=== PATIENT | male | born 1990 | race Caucasian/White ===

== ENCOUNTER 2024-05-19 12:56 | Emergency (ER) | payer BC, OTHER ==
[~2024-05-19] VITALS: Ht 190.5 cm; Wt 122.5 kg
--- NOTE | 2024-05-19 13:05 | ERN ---
ED Note History of Present Illness Stated Complaint: LACERATION ABOVE RIGHT EAR Time Seen by MD: 13:00 Dictation: PATIENT IS A 33-YEAR-OLD MALE HERE STATES HE IS HERE WITH COMPLAINTS OF ERYTHEMA PAIN TO THE RIGHT ANTERIOR EAR ONSET 3-4 DAYS AGO. HE STATES HIS SAW HIS PRIMARY CARE DOCTOR YESTERDAY WHO PERFORMED AN I&D ON A FACIAL ABSCESS AND MARKED THE ERYTHEMA TO HIS FACE. WHEN HE REVIEWED HIM TODAY, HE TOLD HIM HE THO UGHT IT WAS WORSE DESPITE HIS I AND D IN THE CLINDAMYCIN AND TOLD HIM TO COME TO THE EMERGENCY ROOM. PATIENT STATES HE HAS HAD NO FEVER NO CHILLS NO EAR PAIN NO MASTOID TENDERNESS. Allergies: Coded Allergies: No Known Allergies (Unverified Allergy, Unknown, 05/19/24) Past Medical History RN Note Reviewed/Agreed w/PFSH: Yes Review of System Dictation CONSTITUTIONAL: NEGATIVE EXCEPT FOR HPI HEAD/FACE: NEGATIVE EXCEPT FOR HPI TENDERNESS TO RIGHT ANTERIOR EAR, FORMER I AND D SITE NOTED EENT: NEGATIVE EXCEPT FOR HPI RESPIRATORY: NEGATIVE EXCEPT FOR HPI GASTROINTESTINAL/ABDOMINAL: NEGATIVE EXCEPT FOR HPI GENITOURINARY: NEGATIVE EXCEPT FOR HPI MUSCULOSKELETAL: NEGATIVE EXCEPT FOR HPI INTEGUMENTARY: NEGATIVE EXCEPT FOR HPI NEUROLOGICAL/PSYCH: NEGATIVE EXCEPT FOR HPI HEMATOLOGIC/LYMPHATIC: NEGATIVE EXCEPT FOR HPI ALL SYSTEMS NEGATIVE, EXCEPT NOTED ABOVE. 13 POINT REVIEW OF SYSTEMS ASSESSED AND ALL NEGATIVE EXCEPT FOR ABOVE. Initial Vital Sign VS Vital Signs Date Time Temp Pulse Resp B/P (MAP) Pulse Ox O2 Delivery O2 Flow Rate FiO2 05/19/24 13:13 97.5 78 16 146/89 96 Room Air 0 05/19/24 13:53 21 Physical Exam Dictation VITAL SIGNS REVIEWED GENERAL APPEARANCE: ALERT, ORIENTED X 3, MILD ACUTE DISTRESS, WELL DEVELOPED, NOURISHED. HEAD AND FACE: GRANULATING I AND D SITE TO RIGHT ANTERIOR EAR SUPERIORLY. MILD ERYTHEMA NOTED NO MASTOID TENDERNESS EYES: PERRL, PINK CONJUNCTIVAS, EYELID NO TRAUMA, ANTERIOR CHAMBER WITH ARCUS SENILIS. EARS: PINNAS INTACT AND NO SIGNS OF TRAUMA OR ERYTHEMA EAR CANALS CLEAR AND NO DISCHARGE TM NO ERYTHEMA NOSE: NO DISCHARGE, NO BLEEDING. OROPHARYNX: MOUTH NORMAL, TONGUE PINK, PHARYNX CLEAR,NO ERYTHEMA, TONSILS NO EXUDATES, NO ABSCESSES NOTED, MUCOUS MEMBRANE MOIST NECK: SUPPLE, NON-TENDER, NO THYROMEGALY, NO MASSES, NO JVD, NO BRUITS BREAST:DEFERRED CHEST:NO TENDERNESS, NO CREPITUS, NO PARADOXICAL MOVEMENT, NO RETRACTIONS LUNGS:CLEAR, WELL-VENTILATED, SYMMETRIC, NO RALES, NO WHEEZING, NO RHONCHI, NO STRIDOR, GOOD BREATH SOUNDS BILATERALLY HEART: REGULAR RATE, REGULAR RHYTHM, NO MURMUR, NO GALLOPS VASCULAR: NO PERIPHERAL EDEMA, ABDOMEN: SOFT, POSITIVE BOWEL SOUNDS, NONDISTENDED, NO GUARDING, NONTENDER, NO REBOUND, NO MASSES NO HEPATOMEGALY, NO SPLENOMEGALY, NO JONES'S SIGN, NO HERNIAS. RECTAL: DEFERRED GENITAL: DEFERRED NEUROLOGICAL: NORMAL SPEECH, MOTOR FUNCTION INTACT, SENSORY FUNCTION INTACT MUSCULOSKELETAL: NECK NONTENDER, FULL RANGE OF MOTION, BACK NONTENDER, FULL RANGE OF MOTION, EXTREMITIES: NONTENDER, FULL RANGE OF MOTION SKIN: COLOR PINK, DRY, NO TURGOR, NO RASH, NO LACERATIONS, NO ABRASIONS, NO CONTUSIONS. LYMPHATIC: DEFERRED Results (Laboratory/Radiology) Laboratory/Radiology Laboratory Tests Test 05/19/24 13:47 White Blood Count 8.7 K/uL (4.8-10.8) Red Blood Count 4.37 MIL/uL (4.50-6.20) L Hemoglobin 13.3 g/dL (14.0-18.0) L Hematocrit 38.0 % (42-54) L Mean Corpuscular Volume 87.0 fL (79-99) Mean Corpuscular Hemoglobin 30.4 pg (27.0-33.0) Mean Corpuscular Hemoglobin Concent 35.0 g/dL (32.0-36.0) Red Cell Distribution Width 12.8 % (11.0-15.5) Platelet Count 213 K/uL (130-400) Mean Platelet Volume 11.2 fL (7.5-10.5) H Immature Granulocyte % (Auto) 0.5 % (0-1) Neutrophils (%) (Auto) 67.0 % (40.0-77.0) Lymphocytes (%) (Auto) 21.5 % (21.0-51.0) Monocytes (%) (Auto) 7.7 % (3.0-13.0) Eosinophils (%) (Auto) 2.7 % (0.0-8.0) Basophils (%) (Auto) 0.6 % (0.0-5.0) Neutrophils # (Auto) 5.9 K/uL (1.8-7.7) Lymphocytes # (Auto) 1.9 K/uL (1.0-4.8) Monocytes # (Auto) 0.7 K/uL (0.1-1.0) Eosinophils # (Auto) 0.24 K/uL (0.00-0.70) Basophils # (Auto) 0.05 K/uL (0.00-0.20) Absolute Immature Granulocyte (auto 0.04 K/uL (0-1) Nucleated Red Blood Cells 0.0 % (0.0-0.19) Sodium Level 140 mmol/L (136-145) Potassium Level 4.0 mmol/L (3.5-5.1) Chloride Level 103 mmol/L (101-111) Carbon Dioxide Level 27 mmol/L (21-32) Blood Urea Nitrogen 22 mg/dL (7-18) H Creatinine 1.0 mg/dL (0.5-1.3) Glomerular Filtration Rate Calc 102 mL/min (>90) Random Glucose 113 mg/dL (70-105) H Lactic Acid Level 1.7 mmol/L (0.8-2.5) Total Calcium 9.1 mg/dL (8.5-10.1) Labs Reviewed?: Yes ED Course ED Course Orders Procedure Category Date Status Time Cbc With Differential LAB 05/19/24 Complete 13:02 Blood Cult DELORES 05/19/24 In Process 13:02 Lactic Acid LAB 05/19/24 Complete 13:02 Basic Metabolic Panel LAB 05/19/24 Complete 13:02 Ketorolac PHA 05/19/24 Complete Tromethamine 30mg/Ml 13:30 Clindamycin 150mg Cap PHA 05/19/24 Complete (Cleocin 150mg Cap 14:30 Current Medications Medications (Trade) Dose Ordered Sig/Geo Route PRN Reason Start Time Stop Time Status Last Admin Dose Admin Clindamycin HCl (Cleocin 150mg Cap) 600 mg ONCE ONCE PO 05/19/24 14:30 05/19/24 14:31 DC 05/19/24 14:32 Ketorolac Tromethamine (toRADol) 30 mg ONCE ONCE IVP 05/19/24 13:30 05/19/24 13:31 DC 05/19/24 14:06 Vital Signs Date Time Temp Pulse Resp B/P (MAP) Pulse Ox O2 Delivery O2 Flow Rate FiO2 05/19/24 14:46 97.2 78 18 127/58 97 Room Air* 0 21 05/19/24 13:53 97.0 71 20 131/56 97 Room Air* 0 21 05/19/24 13:13 97.5 78 16 146/89 96 Room Air 0 1432, PATIENT WILL BE DISCHARGED HOME WITH NORMAL LABS AND LACTIC ACID 1.7. HE WAS LOADED WITH CLINDAMYCIN 600 MG AND TOLD TO CONTINUE HIS CLINDAMYCIN AT HOME FOLLOW UP WITH HIS PRIMARY CARE DOCTOR. Medical Decision Making MDM MEDICAL DISCHARGE MAKING BASED ON PHYSICAL ASSESSMENT AND CBC CHEMISTRY. LACTIC ACID 1.7 WHITE COUNT IS NORMAL PATIENT LOADED WITH CLINDAMYCIN 600 MG AND TOLD TO CONTINUE HIS CLINDAMYCIN HOME. FOLLOW UP WITH HIS PRIMARY CARE DOCTOR IN 1-2 DAYS. DX & DISP Disposition: Discharge Departure Impression: Primary Impression: Wound check, abscess Additional Impression: Cutaneous abscess of face Condition: Stable Additional Instructions: FOLLOW-UP WITH PRIMARY CARE PROVIDER IN 1 TO 2 DAYS. TAKE MEDICATIONS DIRECTED HERE IN THE EMERGENCY ROOM. OKAY TO CONTINUE HOME MEDICATIONS UNLESS OTHERWISE DISCUSSED DURING YOUR VISIT IN THE EMERGENCY ROOM TODAY. RETURN TO YOUR NEAREST EMERGENCY ROOM IF SYMPTOMS WORSEN OR IF THERE IS NO IMPROVEMENT. CALL 911 IF YOU NEED IMMEDIATE ASSISTANCE. TAKE TYLENOL OR MOTRIN [id number] NEEDED AND IF NO CONTRAINDICATIONS ARE PRESENT. INCREASE ORAL HYDRATION. A WOUND CULTURE OR URINE CULTURE WAS ORDERED HERE IN THE [facility] ROOM DEPARTMENT PLEASE FOLLOW-UP WITH PRIMARY CARE PROVIDER AND ADVISE THEM TO GET REPEAT PORTS FROM OUR FACILITY. IF YOU HAD ANY FILIPE WRAP/SPLINTS THAT WERE APPLIED HERE, PLEASE DO NOT REMOVE THEM UNTIL YOU SEE YOUR PRIMARY CARE OR SPECIALTY. CONTINUE CLINDAMYCIN DIRECTED FROM YOUR PRIMARY CARE DOCTOR, SEE HIM IN THE NEXT ONE TWO DAYS FOR FOLLOW UP AND REFERRAL TO ENT IF ANY CONTINUED PROBLEMS Referrals: LORRIE BUSH MD (PCP) Time of Disposition: 14:33 I have reviewed the case, and I agree with, Diagnosis and Plan ARACELI MCKEE NP May 19, 2024 13:05 GRETCHEN LANGE DO May 20, 2024 18:32
[2024-05-19 14:02] LABS: BASOPHILS # (AUTO) 0.05 K/uL (0.00-0.20); BASOPHILS % (AUTO) 0.6 % (0.0-5.0); EOSINOPHILS # (AUTO) 0.24 K/uL (0.00-0.70); EOSINOPHILS % (AUTO) 2.7 % (0.0-8.0); IMMATURE GRANULOCYTE ABSOLUTE 0.04 K/uL (0-1); LYMPHOCYTES # (AUTO) 1.9 K/uL (1.0-4.8); LYMPHOCYTES % (AUTO) 21.5 % (21.0-51.0); MEAN CORPUSCULAR HEMOGLOBIN 30.4 pg (27.0-33.0); MONOCYTES # (AUTO) 0.7 K/uL (0.1-1.0); MONOCYTES % (AUTO) 7.7 % (3.0-13.0); NEUTROPHILS # (AUTO) 5.9 K/uL (1.8-7.7); PLATELET COUNT (AUTO) 213 K/uL (130-400); RED BLOOD CELL COUNT(AUTO) 4.37 MIL/uL (4.50-6.20); RED CELL DISTRIBUTION WIDTH 12.8 % (11.0-15.5); WHITE BLOOD COUNT (AUTO) 8.7 K/uL (4.8-10.8)
[2024-05-19] MEDS: ketOROlac 30MG VIAL (30MG/ML) IVP ONE (14:06)
[2024-05-19] MEDS: CLINDAMYCIN 150 MG CAP PO ONE (14:32)
[2024-05-19 14:46] VITALS: BP 127/58; PULSE 78; RESP 18; TEMP 97.1; O2SAT 97
== END 2024-05-19 14:50 | disposition home or self-care (01) ==
LOC: EDH 12:56
DX: L02.01 Cutaneous abscess of face (principal)
CPT/HCPCS: 99284; 96374; 80048; 85025; 87040 ×2; 83605; 36415; J1885

== ENCOUNTER 2024-09-18 16:46 | Emergency (ER) | payer BC ==
[~2024-09-18] VITALS: Ht 188 cm; Wt 127.0 kg
--- NOTE | 2024-09-18 19:15 | HMCIMG ---
Exam Type: CT HEAD/BRAIN W/O CONTRAST Clinical Information: BYRNES, dizziness Comparison: None CT Dose Index (CTDI): 57.33 mGy Dose Length Product (DLP): 956.79 total mGy-cm Findings: The examination is unremarkable. Dewey-white matter junction is preserved. No intra or extra axial lesions or fluid collections are seen. Specifically, dewey and white matter are normal in signal characteristics with normal caliber of ventricles and periventricular cisterns with no evidence of intra or or extra-axial hemorrhage, lacunar infarct, or major territorial infarct, mass, or other abnormality. There are no infarcts. There are no hemorrhages. Periventricular white matter locations are preserved. The orbital contents and structures of the posterior fossa are intact. Impression: Normal CT of the head. This study was performed using dose reduction techniques to include automated exposure control and/or adjustment of the mA and/or kV according to patient size.
[2024-09-18 19:24] LABS: BASOPHILS # (AUTO) 0.07 K/uL (0.00-0.20); BASOPHILS % (AUTO) 0.7 % (0.0-5.0); EOSINOPHILS % (AUTO) 2.1 % (0.0-8.0); HEMATOCRIT 43.8 % (42-54); IMMATURE GRANULOCYTE ABSOLUTE 0.04 K/uL (0-1); LYMPHOCYTES # (AUTO) 2.5 K/uL (1.0-4.8); LYMPHOCYTES % (AUTO) 26.5 % (21.0-51.0); MEAN CORPUSCULAR HEMOGLOBIN 30.6 pg (27.0-33.0); MEAN CORPUSCULAR VOLUME 89.9 fL (79-99); MONOCYTES # (AUTO) 0.6 K/uL (0.1-1.0); MONOCYTES % (AUTO) 5.8 % (3.0-13.0); NEUTROPHILS # (AUTO) 6.2 K/uL (1.8-7.7); NEUTROPHILS % (AUTO) 64.5 % (40.0-77.0); PLATELET COUNT (AUTO) 250 K/uL (130-400); RED BLOOD CELL COUNT(AUTO) 4.87 MIL/uL (4.50-6.20); RED CELL DISTRIBUTION WIDTH 12.4 % (11.0-15.5); WHITE BLOOD COUNT (AUTO) 9.6 K/uL (4.8-10.8)
[2024-09-18] MEDS: 0.9%NACL 1000ML 1,000 ML IV STA (19:26)
[2024-09-18 19:45] LABS: CREATININE 1.1 mg/dL (0.5-1.3); POTASSIUM 3.8 mmol/L (3.5-5.1)
[2024-09-18] MEDS: hydrOXYzine 50MG VIAL 50 MG/ML VIAL IM STA (20:38)
[2024-09-18 20:44] LABS: APPEARANCE,URINE CLEAR (CLEAR); BILIRUBIN,URINE NEGATIVE (NEGATIVE); COLOR,URINE LIGHT-YELLOW (YELLOW); GLUCOSE, URINE (UA) NEGATIVE (NEGATIVE); KETONES,URINE NEGATIVE (NEGATIVE); LEUKOCYTE ESTERASE ,URINE NEGATIVE Leu/uL (NEGATIVE); NITRATE,URINE NEGATIVE (NEGATIVE); OCCULT BLOOD,URINE NEGATIVE (NEGATIVE); PH,URINE 5.5 (5.0-8.0); PROTEIN,URINE NEGATIVE (NEGATIVE); UROBILINOGEN,URINE 0.2 mg/dL (0.2-1.0)
[2024-09-18 20:45] LABS: ADD UA MICROSCOPIC NO
[2024-09-18 20:51] LABS: AMPHET/METH SCREEN,URINE NEGATIVE (NEGATIVE); BARBITURATE SCREEN, URINE NEGATIVE (NEGATIVE); BENZODIAZEPINES SCREEN,URINE NEGATIVE (NEGATIVE); CANNABINOID SCREEN,URINE NEGATIVE (NEGATIVE); COCAINE SCREEN,URINE NEGATIVE (NEGATIVE); OPIATE SCREEN,URINE NEGATIVE (NEGATIVE); PHENCYCLIDINE SCREEN,URINE NEGATIVE (NEGATIVE)
--- NOTE | 2024-09-18 21:02 | ERN ---
ED Note History of Present Illness Stated Complaint: HEADACHES Chief Complaint: Headache Time Seen by Midlevel: 17:15 Dictation: 33-year-old male with a history of anxiety and depression coming in with complaints of headache, ringing in the ears. Patient states he did not have a history of anxiety has been off his meds for a couple of months but recently placed on escitalopram. Allergies: Coded Allergies: No Known Allergies (Unverified Allergy, Unknown, 05/19/24) Past Medical History Past Medical History: Anxiety Surgical History: Other Surgical History Other: WRIST, EYE Review of System Dictation Constitutional: Negative for fever,chills, and weight loss Eyes: Negative for injury, pain,redness, and discharge ENT: Negative for injury,pain or swelling Cardiovascular: Negative for chest pain, palpitations, and edema Respiratory: Negative for shortness of breath, cough, and wheezing, Abdomen/GI: Negative for abdominal pain, nausea, vomiting, diarrhea, and constipation Back: Negative for injury and pain : Negative for injury, bleeding and discharge MS/Extremity: Negative for injury and deformity Skin: Negative for rash, and discoloration Neuro: Negative for headache, weakness, numbness, tingling, and seizure Psych: Negative for suicide ideation, homicidal ideation, and hallucinations Review of Systems: was completed Initial Vital Sign VS Vital Signs Date Time Temp Pulse Resp B/P (MAP) Pulse Ox O2 Delivery O2 Flow Rate FiO2 09/18/24 17:10 98.1 68 16 133/86 97 Room Air 0 09/18/24 18:14 21 Physical Exam Dictation General: awake, alert, NAD Head/Face: Normocephalic, atraumatic Eyes: PERRL, EOMI, vision at baseline ENT: oral cavity clear, TMs clear, no signs of infection Neck: Trachea midline, supple, no nuchal rigidity Cardiovascular: RRR, normal S1/S2, No MRGs, no JVD Respiratory: CTAB, no respiratory distress, No rales or wheezes Abdomen: Soft, non-tender, non-distended, normal bowel sounds, no guarding or rebound. Skin: Warm, dry, normal turgor, no rash MS/Extremity: Pulses equal, no cyanosis, neurovascular intact, FROM Neuro: COAx4, GCS 15, strength 5/5, CN 2-12 intact, normal cerebellar exam, normal gait, Psych: Normal behavior, mood, and affect normal Results (Laboratory/Radiology) Laboratory/Radiology Laboratory Tests Test 09/18/24 19:00 09/18/24 20:26 White Blood Count 9.6 K/uL (4.8-10.8) Red Blood Count 4.87 MIL/uL (4.50-6.20) Hemoglobin 14.9 g/dL (14.0-18.0) Hematocrit 43.8 % (42-54) Mean Corpuscular Volume 89.9 fL (79-99) Mean Corpuscular Hemoglobin 30.6 pg (27.0-33.0) Mean Corpuscular Hemoglobin Concent 34.0 g/dL (32.0-36.0) Red Cell Distribution Width 12.4 % (11.0-15.5) Platelet Count 250 K/uL (130-400) Mean Platelet Volume 11.3 fL (7.5-10.5) H Immature Granulocyte % (Auto) 0.4 % (0-1) Neutrophils (%) (Auto) 64.5 % (40.0-77.0) Lymphocytes (%) (Auto) 26.5 % (21.0-51.0) Monocytes (%) (Auto) 5.8 % (3.0-13.0) Eosinophils (%) (Auto) 2.1 % (0.0-8.0) Basophils (%) (Auto) 0.7 % (0.0-5.0) Neutrophils # (Auto) 6.2 K/uL (1.8-7.7) Lymphocytes # (Auto) 2.5 K/uL (1.0-4.8) Monocytes # (Auto) 0.6 K/uL (0.1-1.0) Eosinophils # (Auto) 0.20 K/uL (0.00-0.70) Basophils # (Auto) 0.07 K/uL (0.00-0.20) Absolute Immature Granulocyte (auto 0.04 K/uL (0-1) Nucleated Red Blood Cells 0.0 % (0.0-0.19) Sodium Level 144 mmol/L (136-145) Potassium Level 3.8 mmol/L (3.5-5.1) Chloride Level 103 mmol/L (101-111) Carbon Dioxide Level 33 mmol/L (21-32) H Blood Urea Nitrogen 20 mg/dL (7-18) H Creatinine 1.1 mg/dL (0.5-1.3) Glomerular Filtration Rate Calc 91 mL/min (>90) Random Glucose 98 mg/dL (70-105) Total Calcium 10.1 mg/dL (8.5-10.1) Urine Color LIGHT-YELLOW (YELLOW) Urine Appearance CLEAR (CLEAR) Urine pH 5.5 (5.0-8.0) Urine Specific [place] 1.021 (1.001-1.031) Urine Protein NEGATIVE mg/dL (NEGATIVE) Urine Glucose (UA) NEGATIVE mg/dL (NEGATIVE) Urine Ketones NEGATIVE mg/dL (NEGATIVE) Urine Occult Blood NEGATIVE (NEGATIVE) Urine Nitrate NEGATIVE (NEGATIVE) Urine Bilirubin NEGATIVE mg/dL (NEGATIVE) Urine Urobilinogen 0.2 mg/dL (0.2-1.0) Urine Leukocyte Esterase NEGATIVE Dawn[place]/uL Urine Opiates Screen NEGATIVE (NEGATIVE) Urine Barbiturates Screen NEGATIVE (NEGATIVE) Urine Phencyclidine Screen NEGATIVE (NEGATIVE) Urine Amphetamines Screen NEGATIVE (NEGATIVE) Urine Benzodiazepines Screen NEGATIVE (NEGATIVE) Urine Cocaine Screen NEGATIVE (NEGATIVE) Urine Marijuana (THC) Screen NEGATIVE (NEGATIVE) Labs Reviewed?: Yes EKG Comment: EKGs did not at 8:09 p.m.. Sinus rhythm 60 beats per minute. No STEMI interpreted by ER MD ED Course ED Course Orders Procedure Category Date Status Time Cbc With Differential LAB 09/18/24 Complete 18:36 Basic Metabolic Panel LAB 09/18/24 Complete 18:36 Urinalysis Profile LAB 09/18/24 In Process 18:36 Drug Screen Urine LAB 09/18/24 In Process 18:36 Ct Head/Brain W/O CT 09/18/24 Resulted Contrast 18:36 0.9%Nacl 1000ml (Ns PHA 09/18/24 Complete 1000ml) 18:36 12 Lead Ekg Tracing- EKG 09/18/24 Logged Technical 20:04 12 Lead Ekg Tracing- EKG 09/18/24 Logged Technical 20:11 Hydroxyzine 50mg Vial PHA 09/18/24 Complete (Atarax 50mg Inj) 20:16 Current Medications Medications (Trade) Dose Ordered Sig/Geo Route PRN Reason Start Time Stop Time Status Last Admin Dose Admin Hydroxyzine HCl (ATArax 50MG INJ) 25 mg ONCE STAT IM 09/18/24 20:16 09/18/24 20:18 DC 09/18/24 20:38 Sodium Chloride 1,000 ml @ 1,000 mls/hr Q1H STAT IV 09/18/24 18:36 09/18/24 19:35 DC 09/18/24 19:26 Vital Signs Date Time Temp Pulse Resp B/P (MAP) Pulse Ox O2 Delivery O2 Flow Rate FiO2 09/18/24 18:14 98.6 68 16 133/86 97 Room Air* 0 21 09/18/24 17:10 98.1 68 16 133/86 97 Room Air 0 Medical Decision Making MDM MDM: 33-year-old male with a history of anxiety and depression coming in with complaints of headache, ringing in the ears. Patient states he did not have a history of anxiety has been off his meds for a couple of months but recently placed on escitalopram.CBC shows no leukocytosis, no anemia, no thrombocytopenia. Chemistry unremarkable. UA shows no evidence of urinary tract infection. CT scan of the head shows no acute finding. Discussed findings with the patient. Educated patient to continue taking his it is the escitalopram that his doctor prescribed and to return to the hospital as needed. Patient verbalized understanding, answered all questions. Differential diagnosis: Anxiety, depression, Rationale: Tests considered and ordered secondary to shared decision making include: Previous outside records reviewed: Old ER visits. Risk of complication and/or morbidity or mortality of patient management: None Medications-Per medication reconciliation Need for hospitalization: Patient does not meet criteria for hospitalization. Need for emergency major/minor surgery: No There are no social concerns with this patient. Prescription drug management Prescriptions will include symptomatic care Patient's prior external medical records from other ER visits were reviewed by me as indicated. Prior testing and results from previous visits were reviewed. Prior tests were taken into account with medical decision making and resource utilization, independent historian/historians were used to obtain complete medical history. I independently interpreted the test that were performed, results were reviewed by me and considered findings on radiology if ordered. Medical management and examination interpretation discussions were had by me with other qualified healthcare professionals as indicated for the patient's care. DX & DISP Disposition: Discharge Departure Impression: Primary Impression: Anxiety Condition: Stable Additional Instructions: Please continue taking the antianxiety medications that your doctor prescribed. Return to the hospital if you have any worsening symptoms. Referrals: MAIRA BANDA (PCP) Time of Disposition: 21:00 I have reviewed the case, and I agree with, Diagnosis and Plan FELICIA BEDOYA NP September 18, 2024 21:02
[2024-09-18 21:03] VITALS: BP 128/80; PULSE 62; RESP 16; TEMP 98.6; O2SAT 97
--- NOTE | 2024-09-19 07:52 | EKG ---
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
== END 2024-09-18 21:04 | disposition home or self-care (01) ==
LOC: EDH 16:46
DX: F41.9 Anxiety disorder, unspecified (principal)
CPT/HCPCS: 99284; 70450; 80048; 80305; 85025; 36415; 96372; 93005; 81003; J3410; J7030

== ENCOUNTER → 2025-01-04 | Outpatient (CLI) | payer BC ==
--- NOTE | 2025-01-04 16:08 | HMCIMG ---
EXAM: CT Maxillofacial with or without Intravenous Contrast. CLINICAL HISTORY: 34 year old male with chronic sinusitis. TECHNIQUE: Axial computed tomography images of the face with or without intravenous contrast. Sagittal and coronal reformations performed. Dose reduction technique was used including one or more of the following: automated exposure control, adjustment of mA and kV according to patient size, and/or iterative reconstruction. CONTRAST: NONE; COMPARISON: None provided. FINDINGS: BONES: No acute fracture or focal osseous lesion. The mandible is intact. SOFT TISSUES: The soft tissues are unremarkable. SINUSES: A small left maxillary sinus retention cyst was seen. ORBITS: The orbits are normal. No retrobulbar hematoma or mass. IMPRESSION: 1. No acute findings within maxillofacial CT. 2. Small left maxillary sinus retention cyst. /[place]
== END | disposition home or self-care (01) ==
LOC: RAH 14:04
PROVIDERS: ATTEND Otolaryngology
DX: J34.1 Cyst and mucocele of nose and nasal sinus (principal); J32.8 Other chronic sinusitis; H81.13 Benign paroxysmal vertigo, bilateral; H69.83 Other specified disorders of Eustachian tube, bilateral
CPT/HCPCS: 70486